=== PATIENT | female | born 1945 | race Caucasian/White ===

== ENCOUNTER 2020-02-07 20:43 | Emergency (ER) | payer MEDICARE, OTHER ==
[2020-02-07] MEDS ORDERED: TETANUS/DIPHTHERIA TOXOID [ADULT] 0.5 ML VIAL IM ONE (20:59)
[2020-02-07 21:00] LABS: EOSINOPHILS % (AUTO) 2.2 % (0.0-8.0); HEMATOCRIT 30.8 % (36-48); LYMPHOCYTES % (AUTO) 23.5 % (21.0-51.0); MEAN CORPUSCULAR HEMOGLOBIN 26.9 pg (27.0-33.0); MEAN CORPUSCULAR HGB CONC 32.5 g/dL (32.0-36.0); MEAN CORPUSCULAR VOLUME 82.8 fL (79-99); PLATELET COUNT (AUTO) 162 K/uL (130-400); RED BLOOD CELL COUNT(AUTO) 3.72 MIL/uL (4.00-5.50)
[2020-02-07 21:10] LABS: CREATININE 1.1 mg/dL (0.5-1.5); POTASSIUM 4.6 mmol/L (3.5-5.1)
[2020-02-07 21:15] LABS: ALBUMIN 3.9 g/dL (3.5-5.0); BILIRUBIN,TOTAL 0.3 mg/dL (0.2-1.0); TOTAL PROTEIN, SERUM 7.3 g/dL (6.0-8.3)
== END 2020-02-07 22:44 | disposition home or self-care (01) ==
LOC: EDH 20:43
DX: S00.03XA Contusion of scalp, initial encounter (principal); S50.311A Abrasion of right elbow, initial encounter; E11.9 Type 2 diabetes mellitus without complications; I10 Essential (primary) hypertension; W18.39XA Other fall on same level, initial encounter; Y93.89 Activity, other specified; Y92.512 Supermarket, store or market as the place of occurrence of the external cause; Y99.8 Other external cause status
CPT/HCPCS: 36415; 70450; 71045; 72125; 80053; 84484; 85025; 90471; 90714; 93005

== ENCOUNTER 2021-01-24 04:19 | Inpatient (IN) | payer BC, MEDICARE ==
[~2021-01-24] VITALS: Ht 152.4 cm; Wt 73.0 kg
[2021-01-24 05:52] LABS: BASOPHILS % (AUTO) 0.6 % (0.0-5.0); EOSINOPHILS % (AUTO) 1.1 % (0.0-8.0); HEMATOCRIT 28.7 % (36-48); LYMPHOCYTES % (AUTO) 12.8 % (21.0-51.0); MEAN CORPUSCULAR HEMOGLOBIN 27.3 pg (27.0-33.0); MEAN CORPUSCULAR HGB CONC 33.1 g/dL (32.0-36.0); MEAN CORPUSCULAR VOLUME 82.5 fL (79-99); MONOCYTES % (AUTO) 7.4 % (3.0-13.0); NEUTROPHILS % (AUTO) 77.9 % (40.0-77.0); PLATELET COUNT (AUTO) 160 K/uL (130-400); RED BLOOD CELL COUNT(AUTO) 3.48 MIL/uL (4.00-5.50); RED CELL DISTRIBUTION WIDTH 14.7 % (11.0-15.5); WHITE BLOOD COUNT (AUTO) 8.9 K/uL (4.8-10.8)
[2021-01-24 06:01] LABS: CREATININE 1.7 mg/dL (0.5-1.5); POTASSIUM 3.5 mmol/L (3.5-5.1)
[2021-01-24 06:12] LABS: B-TYPE NATRIURETIC PEPTIDE 46 pg/mL (0-100)
[2021-01-24 06:14] LABS: ALBUMIN 3.7 g/dL (3.5-5.0); BILIRUBIN,TOTAL 0.4 mg/dL (0.2-1.0); MAGNESIUM 1.3 mg/dL (1.80-2.40); THYROID STIMULATING HORMONE 1.83 uIU/mL (0.36-3.74); TOTAL PROTEIN, SERUM 7.2 g/dL (6.0-8.3)
[2021-01-24 06:20] LABS: APPEARANCE,URINE CLEAR (CLEAR); BILIRUBIN,URINE NEGATIVE (NEGATIVE); COLOR,URINE YELLOW (YELLOW); GLUCOSE, URINE (UA) NEGATIVE (NEGATIVE); KETONES,URINE NEGATIVE (NEGATIVE); LEUKOCYTE ESTERASE ,URINE NEGATIVE (NEGATIVE); NITRATE,URINE NEGATIVE (NEGATIVE); OCCULT BLOOD,URINE NEGATIVE (NEGATIVE); PH,URINE 5.5 (5.0-8.0); PROTEIN,URINE NEGATIVE (NEGATIVE); UROBILINOGEN,URINE 0.2 mg/dL (0.2-1.0)
[2021-01-24] MEDS ORDERED: FUROSEMIDE 40MG VIAL IVP ONE (06:30)
[2021-01-24] MEDS ORDERED: METO-391 PO (06:33)
[2021-01-24] MEDS ORDERED: LAMO150T6 PO (06:33)
[2021-01-24] MEDS ORDERED: FURO20TA4 PO (06:33)
[2021-01-24] MEDS ORDERED: OMEP40CA21 PO (06:33)
[2021-01-24] MEDS ORDERED: METF-444 PO (06:33)
[2021-01-24] MEDS ORDERED: LEVO75CA5 PO (06:33)
[2021-01-24] MEDS ORDERED: QUET100T34 PO (06:33)
[2021-01-24] MEDS ORDERED: ROSU40TA21 PO (06:33)
[2021-01-24] MEDS ORDERED: HYDR-4154 PO (06:33)
[2021-01-24] MEDS ORDERED: AMLO-258 PO (06:33)
[2021-01-24] MEDS ORDERED: AEC81 PO (06:33)
[2021-01-24] MEDS ORDERED: LORA10TA7 PO (06:33)
[2021-01-24] MEDS ORDERED: CLINDAMYCIN IVPB 600MG/50ML 50 ML IV ONE (07:00)
[2021-01-24] MEDS ORDERED: MORPHINE 2 MG SYG IVP ONE (07:00)
[2021-01-24] MEDS ORDERED: HYDRALAZINE 20MG/ML VIAL IV PRN (07:30)
[2021-01-24] MEDS ORDERED: ONDANSETRON 4MG INJ IV PRN (07:30)
[2021-01-24 09:02] LABS: ABG BASE EXCESS 0.4 mmol/L (-2.0-3.0); ABG HCO3 23.4 mmol/L (21.0-28.0); ABG OXYGEN SATURATION 96.9 % (95.0-99.0); ABG PCO2 33 mmHg (32-45)
[2021-01-24] MEDS: FAMOTIDINE 20MG VIAL IV SCH ×2 (09:21→20:52)
[2021-01-24] MEDS: ENOXAPARIN SODIUM 40 MG/0.4 ML SYRINGE SQ SCH (09:22)
[2021-01-24] MEDS ORDERED: POTASSIUM CHLORIDE 10% ELIXIR 20 MEQ/15 ML UDCUP PO PRN ×2 (10:30)
[2021-01-24] MEDS ORDERED: KCL 20 MEQ ERTAB PO PRN (10:30)
[2021-01-24] MEDS ORDERED: MAGNESIUM 2GM PREMIX 50ML 50 ML IV PRN (10:30)
[2021-01-24] MEDS ORDERED: POTASSIUM CHLORIDE 20MEQ/100ML 100 ML IV PRN ×2 (10:30)
[2021-01-24] MEDS ORDERED: LIDOCAINE HCL-MPF 1% 2ML VIAL IV PRN ×2 (10:30)
[2021-01-24] MEDS: KCL 20 MEQ ERTAB PO PRN ×2 (10:46→13:44)
[2021-01-24] MEDS ORDERED: LEVOFLOXACIN 500 MG/D5W 100 ML 100 ML IV SCH (11:00)
[2021-01-24] MEDS ORDERED: FUROSEMIDE 20MG VIAL IV SCH (11:30)
[2021-01-24] MEDS: INSULIN HUMULIN R 100 UNIT/ML 3ML SQ SCH ×3 (11:30→20:54)
[2021-01-24 12:00] VITALS: BP 134/71
[2021-01-24] MEDS: ACETAMINOPHEN 325 MG TAB PO PRN (13:45)
[2021-01-24 16:00] VITALS: BP 112/73
[2021-01-24] MEDS: CEFAZOLIN SODIUM 1 GM VIAL IVP SCH ×2 (16:18→23:15)
[2021-01-24] MEDS: LINEZOLID 600 MG/ISO-OSM 300 ML IV SCH (16:18)
[2021-01-24 19:39] LABS: CREATININE 1.9 mg/dL (0.5-1.5); MAGNESIUM 1.7 mg/dL (1.80-2.40); POTASSIUM 3.8 mmol/L (3.5-5.1)
[2021-01-24 19:50] VITALS: BP 139/58
[2021-01-24] MEDS ORDERED: QUETIAPINE FUMARATE 100 MG TAB ONE (23:22)
[2021-01-25] VITALS (7 sets, daily range): BP systolic 119–151; BP diastolic 52–73
[2021-01-25] MEDS: LINEZOLID 600 MG/ISO-OSM 300 ML IV SCH ×2 (03:18→15:13)
[2021-01-25 04:12] LABS: HEMATOCRIT 27.3 % (36-48); MEAN CORPUSCULAR HEMOGLOBIN 26.8 pg (27.0-33.0); MEAN CORPUSCULAR HGB CONC 31.5 g/dL (32.0-36.0); RED BLOOD CELL COUNT(AUTO) 3.21 MIL/uL (4.00-5.50); RED CELL DISTRIBUTION WIDTH 14.5 % (11.0-15.5); WHITE BLOOD COUNT (AUTO) 6.5 K/uL (4.8-10.8)
[2021-01-25 04:28] LABS: CREATININE 1.5 mg/dL (0.5-1.5); POTASSIUM 3.6 mmol/L (3.5-5.1)
[2021-01-25] MEDS: INSULIN HUMULIN R 100 UNIT/ML 3ML SQ SCH ×4 (06:29→20:29)
[2021-01-25] MEDS: CEFAZOLIN SODIUM 1 GM VIAL IVP SCH ×3 (06:30→23:01)
[2021-01-25] MEDS: LEVOTHYROXINE 75 MCG TABLET PO SCH (06:36)
[2021-01-25] MEDS ORDERED: QUETIAPINE FUMARATE 100 MG TAB PO SCH (09:00)
[2021-01-25] MEDS: LAMOTRIGINE 100 MG TABLET PO SCH (09:42)
[2021-01-25] MEDS: MAGNESIUM 2GM PREMIX 50ML 50 ML IV PRN (09:42)
[2021-01-25] MEDS: KCL 20 MEQ ERTAB PO PRN ×2 (09:43→15:17)
[2021-01-25] MEDS: LORATADINE 10 MG TABLET PO SCH (09:43)
[2021-01-25] MEDS: ENOXAPARIN SODIUM 40 MG/0.4 ML SYRINGE SQ SCH (09:44)
[2021-01-25] MEDS: METOPROLOL SUCCINATE 50 MG TAB.SR.24H PO SCH (09:45)
[2021-01-25] MEDS: ATORVASTATIN 40 MG TABLET PO SCH (09:45)
[2021-01-25] MEDS: ASPIRIN 81 MG EC TAB PO SCH (09:46)
[2021-01-25] MEDS: PANTOPRAZOLE 40 MG TAB DR PO SCH (09:46)
[2021-01-25] MEDS: ACETAMINOPHEN 325 MG TAB PO PRN ×2 (14:07→23:22)
[2021-01-26] MEDS ORDERED: HYDROCODONE/ACETAMINOPHEN 5/325 MG TAB PO ONE (02:30)
[2021-01-26] MEDS: LINEZOLID 600 MG/ISO-OSM 300 ML IV SCH ×2 (03:08→13:57)
[2021-01-26 03:35] VITALS: BP 128/60
[2021-01-26 04:01] LABS: HEMATOCRIT 27.3 % (36-48); MEAN CORPUSCULAR HEMOGLOBIN 26.5 pg (27.0-33.0); MEAN CORPUSCULAR HGB CONC 30.4 g/dL (32.0-36.0); MEAN CORPUSCULAR VOLUME 87.2 fL (79-99); PLATELET COUNT (AUTO) 147 K/uL (130-400); RED BLOOD CELL COUNT(AUTO) 3.13 MIL/uL (4.00-5.50); RED CELL DISTRIBUTION WIDTH 14.5 % (11.0-15.5); WHITE BLOOD COUNT (AUTO) 5.9 K/uL (4.8-10.8)
[2021-01-26 04:32] LABS: CREATININE 1.3 mg/dL (0.5-1.5); POTASSIUM 3.8 mmol/L (3.5-5.1)
[2021-01-26] MEDS: INSULIN HUMULIN R 100 UNIT/ML 3ML SQ SCH ×4 (05:57→21:00)
[2021-01-26] MEDS: CEFAZOLIN SODIUM 1 GM VIAL IVP SCH ×3 (06:22→22:19)
[2021-01-26] MEDS: LEVOTHYROXINE 75 MCG TABLET PO SCH (06:22)
[2021-01-26 07:38] VITALS: BP 135/62
[2021-01-26] MEDS: ASPIRIN 81 MG EC TAB PO SCH (08:33)
[2021-01-26] MEDS: PANTOPRAZOLE 40 MG TAB DR PO SCH (08:33)
[2021-01-26] MEDS: ACETAMINOPHEN 325 MG TAB PO PRN (08:34)
[2021-01-26] MEDS: ATORVASTATIN 40 MG TABLET PO SCH (08:34)
[2021-01-26] MEDS: METOPROLOL SUCCINATE 50 MG TAB.SR.24H PO SCH (08:34)
[2021-01-26] MEDS: LORATADINE 10 MG TABLET PO SCH (08:34)
[2021-01-26] MEDS: ENOXAPARIN SODIUM 40 MG/0.4 ML SYRINGE SQ SCH (08:35)
[2021-01-26] MEDS: LAMOTRIGINE 100 MG TABLET PO SCH (08:39)
[2021-01-26 11:22] VITALS: BP 140/57
[2021-01-26] MEDS ORDERED: ACETAMINOPHEN WITH CODEINE 1 TAB TAB PO PRN (13:30)
[2021-01-26 16:00] VITALS: BP 128/54
[2021-01-26] MEDS ORDERED: QUETIAPINE FUMARATE 100 MG TAB ONE (19:21)
[2021-01-26 19:25] VITALS: BP 140/70
[2021-01-26] MEDS ORDERED: QUETIAPINE FUMARATE 100 MG TAB PO SCH (21:00)
[2021-01-26 23:11] VITALS: BP 113/53
[2021-01-27] MEDS: LINEZOLID 600 MG/ISO-OSM 300 ML IV SCH (02:07)
[2021-01-27 04:00] VITALS: BP 118/68
[2021-01-27 04:20] LABS: MEAN CORPUSCULAR HEMOGLOBIN 26.6 pg (27.0-33.0); MEAN CORPUSCULAR HGB CONC 30.4 g/dL (32.0-36.0); MEAN CORPUSCULAR VOLUME 87.7 fL (79-99); RED BLOOD CELL COUNT(AUTO) 3.08 MIL/uL (4.00-5.50); RED CELL DISTRIBUTION WIDTH 14.2 % (11.0-15.5); WHITE BLOOD COUNT (AUTO) 5.2 K/uL (4.8-10.8)
[2021-01-27 04:24] LABS: CREATININE 1.1 mg/dL (0.5-1.5); POTASSIUM 4.3 mmol/L (3.5-5.1)
[2021-01-27] MEDS: INSULIN HUMULIN R 100 UNIT/ML 3ML SQ SCH ×3 (05:42→16:30)
[2021-01-27] MEDS: LEVOTHYROXINE 75 MCG TABLET PO SCH (06:02)
[2021-01-27] MEDS: CEFAZOLIN SODIUM 1 GM VIAL IVP SCH (06:02)
[2021-01-27] MEDS: MAGNESIUM 2GM PREMIX 50ML 50 ML IV PRN (06:31)
[2021-01-27 07:30] LABS: % IRON SATURATION 18.3 % (22-44)
[2021-01-27 08:00] VITALS: BP 130/73
[2021-01-27] MEDS: LORATADINE 10 MG TABLET PO SCH (09:17)
[2021-01-27] MEDS: ASPIRIN 81 MG EC TAB PO SCH (09:17)
[2021-01-27] MEDS: ENOXAPARIN SODIUM 40 MG/0.4 ML SYRINGE SQ SCH (09:17)
[2021-01-27] MEDS: METOPROLOL SUCCINATE 50 MG TAB.SR.24H PO SCH (09:17)
[2021-01-27] MEDS: ATORVASTATIN 40 MG TABLET PO SCH (09:17)
[2021-01-27] MEDS: PANTOPRAZOLE 40 MG TAB DR PO SCH (09:18)
[2021-01-27] MEDS: LAMOTRIGINE 100 MG TABLET PO SCH (09:18)
[2021-01-27 12:06] VITALS: BP 143/54
[2021-01-27] MEDS ORDERED: FURO20TA4 PO (15:30)
[2021-01-27 16:00] VITALS: BP 148/86
[2021-01-28] MEDS ORDERED: TRAM50TA4 PO (04:16)
== END 2021-01-27 19:30 | disposition home or self-care (01) | DRG 602 ==
LOC: EDH 04:19 → EDHIP 07:13 → 4DH 10:17
PROVIDERS: ADMIT Internal Medicine; ATTEND Internal Medicine
DX: L03.116 Cellulitis of left lower limb (principal); I50.31 Acute diastolic (congestive) heart failure; I11.0 Hypertensive heart disease with heart failure; L03.115 Cellulitis of right lower limb; M75.101 Unspecified rotator cuff tear or rupture of right shoulder, not specified as traumatic; N19 Unspecified kidney failure; E66.9 Obesity, unspecified; E03.9 Hypothyroidism, unspecified; E83.42 Hypomagnesemia; Z20.822 Contact with and (suspected) exposure to COVID-19; M19.90 Unspecified osteoarthritis, unspecified site; K21.9 Gastro-esophageal reflux disease without esophagitis; E78.00 Pure hypercholesterolemia, unspecified; E11.40 Type 2 diabetes mellitus with diabetic neuropathy, unspecified; E78.5 Hyperlipidemia, unspecified; Z68.31 Body mass index [BMI] 31.0-31.9, adult; Z90.49 Acquired absence of other specified parts of digestive tract; Z88.8 Allergy status to other drugs, medicaments and biological substances; Z83.3 Family history of diabetes mellitus; Z82.49 Family history of ischemic heart disease and other diseases of the circulatory system; T50.905A Adverse effect of unspecified drugs, medicaments and biological substances, initial encounter; Y92.89 Other specified places as the place of occurrence of the external cause
CPT/HCPCS: 36415; 36600; 71045; 73221; 80048; 80053; 80061; 81003; 82728; 82803; 82948; 83036; 83540; 83550; 83735; 83880; 84145; 84443; 84484; 85025; 85027; 86140; 87635; 93005; 93306; 93356; 93970; 97039; G0378; J0690; J1650; J1815; J1940; J1956; J2020; J3475; J3490

== ENCOUNTER 2021-01-28 02:56 | Emergency (ER) | payer MEDICARE ==
[~2021-01-28 02:56] MED LIST: AEC81 PO; FURO20TA4 PO; HYDR-4154 PO; LAMO150T6 PO; LEVO75CA5 PO; LORA10TA7 PO; METF-444 PO; METO-391 PO; OMEP40CA21 PO; QUET100T34 PO; ROSU40TA21 PO
[2021-01-28 03:11] VITALS: BP 124/49
[2021-01-28] MEDS ORDERED: ACETAMINOPHEN 500 MG TABLET PO ONE (03:30)
[2021-01-28] MEDS ORDERED: TRAMADOL HCL 50 MG TABLET PO ONE (04:00)
[2021-01-28] MEDS ORDERED: TRAM50TA4 PO (04:16)
== END 2021-01-28 04:49 | disposition home or self-care (01) ==
LOC: EDH 02:56
DX: S20.212A Contusion of left front wall of thorax, initial encounter (principal); L03.116 Cellulitis of left lower limb; E78.00 Pure hypercholesterolemia, unspecified; I11.0 Hypertensive heart disease with heart failure; I50.9 Heart failure, unspecified; E11.40 Type 2 diabetes mellitus with diabetic neuropathy, unspecified; M19.90 Unspecified osteoarthritis, unspecified site; E05.90 Thyrotoxicosis, unspecified without thyrotoxic crisis or storm; Z79.82 Long term (current) use of aspirin; Z79.84 Long term (current) use of oral hypoglycemic drugs; Z79.899 Other long term (current) drug therapy; W18.39XA Other fall on same level, initial encounter; Y93.89 Activity, other specified; Y92.89 Other specified places as the place of occurrence of the external cause; Y99.8 Other external cause status
CPT/HCPCS: 71045

== ENCOUNTER → 2021-12-02 | Outpatient (CLI) | payer OTHER ==
[~2021-12-02] MED LIST changes: +TRAM50TA4 PO
== END | disposition home or self-care (01) ==
LOC: RAH 09:56
PROVIDERS: ATTEND Family Medicine
DX: M25.561 Pain in right knee (principal)
CPT/HCPCS: 73562

== ENCOUNTER → 2022-06-22 | Outpatient (CLI) | payer OTHER | END | disposition home or self-care (01) | LOC: RAH 12:34 | PROVIDERS: ATTEND Family Medicine | DX: R91.8 Other nonspecific abnormal finding of lung field (principal); M47.815 Spondylosis without myelopathy or radiculopathy, thoracolumbar region | CPT/HCPCS: 71046 ==

== ENCOUNTER 2022-06-29 13:17 | Emergency (ER) | payer OTHER ==
[~2022-06-29] VITALS: Ht 533.4 cm; Wt 68.0 kg
[2022-06-29 14:42] LABS: BASOPHILS % (AUTO) 0.5 % (0.0-5.0); EOSINOPHILS % (AUTO) 1.8 % (0.0-8.0); HEMATOCRIT 31.6 % (36-48); LYMPHOCYTES % (AUTO) 10.3 % (21.0-51.0); MEAN CORPUSCULAR HEMOGLOBIN 27.2 pg (27.0-33.0); MEAN CORPUSCULAR HGB CONC 30.7 g/dL (32.0-36.0); MEAN CORPUSCULAR VOLUME 88.5 fL (79-99); MONOCYTES % (AUTO) 7.7 % (3.0-13.0); NEUTROPHILS % (AUTO) 76.8 % (40.0-77.0); NUCLEATED RED BLOOD CELLS 0.3 % (0.0-0.19); PLATELET COUNT (AUTO) 160 K/uL (130-400); RED BLOOD CELL COUNT(AUTO) 3.57 MIL/uL (4.00-5.50); RED CELL DISTRIBUTION WIDTH 14.3 % (11.0-15.5); WHITE BLOOD COUNT (AUTO) 7.9 K/uL (4.8-10.8)
[2022-06-29 14:53] LABS: CREATININE 1.6 mg/dL (0.5-1.5)
[2022-06-29 15:01] LABS: ALBUMIN 3.3 g/dL (3.5-5.0); TOTAL PROTEIN, SERUM 6.7 g/dL (6.0-8.3)
[2022-06-29 15:58] LABS: APPEARANCE,URINE CLEAR (CLEAR); BILIRUBIN,URINE NEGATIVE (NEGATIVE); COLOR,URINE COLORLESS (YELLOW); GLUCOSE, URINE (UA) NEGATIVE (NEGATIVE); KETONES,URINE NEGATIVE (NEGATIVE); LEUKOCYTE ESTERASE ,URINE 25 Leu/uL (NEGATIVE); NITRATE,URINE NEGATIVE (NEGATIVE); OCCULT BLOOD,URINE NEGATIVE (NEGATIVE); PH,URINE 6.5 (5.0-8.0); PROTEIN,URINE NEGATIVE (NEGATIVE); UROBILINOGEN,URINE 0.2 mg/dL (0.2-1.0)
[2022-06-29] MEDS ORDERED: KETOROLAC 15MG/ML VIAL (15MG/ML) IV ONE (16:00)
[2022-06-29 16:03] LABS: BACTERIA,URINE RARE /HPF (None Seen); RBC,URINE 0-1 /HPF (0-1); SQUAMOUS EPITHELIAL CELL,UR RARE /HPF (0-2)
[2022-06-29] MEDS ORDERED: SULF1TAB42 PO (17:57)
[2022-06-29] MEDS ORDERED: CEPH500T PO (18:00)
[2022-06-29] MEDS ORDERED: CEFTRIAXONE 1G VIAL ONE (18:15)
[2022-06-29] MEDS ORDERED: CEFTRIAXONE 1G VIAL IVPB ONE (18:30)
[2022-06-29 20:19] VITALS: BP 150/78
== END 2022-06-29 20:29 | disposition home or self-care (01) ==
LOC: EDH 13:17
DX: N39.0 Urinary tract infection, site not specified (principal); M54.50 Low back pain, unspecified; M54.2 Cervicalgia; M25.561 Pain in right knee; E11.9 Type 2 diabetes mellitus without complications; E78.00 Pure hypercholesterolemia, unspecified; M19.90 Unspecified osteoarthritis, unspecified site; I11.0 Hypertensive heart disease with heart failure; Z79.82 Long term (current) use of aspirin; Z79.899 Other long term (current) drug therapy
CPT/HCPCS: 99285; 72125; 96374; 71045; 96375; 84484; 80053; 83880; 85025; 81001; 36415; 73562; 72131; 72128; 93005; J0696; J1885

== ENCOUNTER → 2022-08-26 | Outpatient (CLI) | payer OTHER ==
[~2022-08-26] MED LIST changes: -AEC81 PO; +AMLO-258 PO; +ATOR20TA65 PO; +FENO160T16 PO; -FURO20TA4 PO; +GABA600T10 PO; +HYDR25 PO; +LOSA100T59 PO; -METF-444 PO; +METF-446 PO; +MONT-39 PO; -ROSU40TA21 PO; -TRAM50TA4 PO
== END | disposition home or self-care (01) ==
LOC: RAH 13:37
PROVIDERS: ATTEND Family Medicine
DX: K57.30 Diverticulosis of large intestine without perforation or abscess without bleeding (principal); N13.30 Unspecified hydronephrosis; Z90.49 Acquired absence of other specified parts of digestive tract
CPT/HCPCS: 74176

== ENCOUNTER → 2022-09-25 | Outpatient (CLI) | payer OTHER | END | disposition home or self-care (01) | LOC: RAH 13:08 | PROVIDERS: ATTEND Family Medicine | DX: I70.203 Unspecified atherosclerosis of native arteries of extremities, bilateral legs (principal); E11.40 Type 2 diabetes mellitus with diabetic neuropathy, unspecified; E11.51 Type 2 diabetes mellitus with diabetic peripheral angiopathy without gangrene | CPT/HCPCS: 93925 ==

== ENCOUNTER 2022-10-13 00:41 | Emergency (ER) | payer OTHER ==
[~2022-10-13] VITALS: Ht 152.4 cm; Wt 69.4 kg
[2022-10-13 02:53] LABS: BASOPHILS # (AUTO) 0.06 K/uL (0.00-0.20); BASOPHILS % (AUTO) 0.6 % (0.0-5.0); EOSINOPHILS # (AUTO) 0.25 K/uL (0.00-0.70); EOSINOPHILS % (AUTO) 2.7 % (0.0-8.0); HEMATOCRIT 31.8 % (36-48); IMMATURE GRANULOCYTE ABSOLUTE 0.03 K/uL (0-1); LYMPHOCYTES # (AUTO) 1.3 K/uL (1.0-4.8); LYMPHOCYTES % (AUTO) 14.3 % (21.0-51.0); MEAN CORPUSCULAR HEMOGLOBIN 27.3 pg (27.0-33.0); MEAN CORPUSCULAR HGB CONC 32.1 g/dL (32.0-36.0); MEAN CORPUSCULAR VOLUME 85.3 fL (79-99); MONOCYTES # (AUTO) 0.6 K/uL (0.1-1.0); MONOCYTES % (AUTO) 6.3 % (3.0-13.0); NEUTROPHILS # (AUTO) 7.1 K/uL (1.8-7.7); NEUTROPHILS % (AUTO) 75.8 % (40.0-77.0); PLATELET COUNT (AUTO) 140 K/uL (130-400); RED BLOOD CELL COUNT(AUTO) 3.73 MIL/uL (4.00-5.50); RED CELL DISTRIBUTION WIDTH 14.2 % (11.0-15.5); WHITE BLOOD COUNT (AUTO) 9.4 K/uL (4.8-10.8)
[2022-10-13 02:56] LABS: APPEARANCE,URINE CLEAR (CLEAR); BILIRUBIN,URINE NEGATIVE (NEGATIVE); COLOR,URINE LIGHT-YELLOW (YELLOW); GLUCOSE, URINE (UA) NEGATIVE (NEGATIVE); KETONES,URINE NEGATIVE (NEGATIVE); LEUKOCYTE ESTERASE ,URINE NEGATIVE Leu/uL (NEGATIVE); NITRATE,URINE NEGATIVE (NEGATIVE); OCCULT BLOOD,URINE NEGATIVE (NEGATIVE); PROTEIN,URINE NEGATIVE (NEGATIVE); UROBILINOGEN,URINE 0.2 mg/dL (0.2-1.0)
[2022-10-13 03:01] LABS: ADD UA MICROSCOPIC NO
[2022-10-13 03:09] LABS: CREATININE 1.1 mg/dL (0.5-1.5)
[2022-10-13 03:15] LABS: BILIRUBIN,TOTAL 0.4 mg/dL (0.2-1.0); TOTAL PROTEIN, SERUM 7.4 g/dL (6.0-8.3)
[2022-10-13 04:19] VITALS: BP 135/74; PULSE 86; RESP 18; O2SAT 99
[2022-10-13] MEDS ORDERED: FUROSEMIDE 40MG VIAL IV ONE (04:30)
[2022-10-13] MEDS ORDERED: POTA-215 PO (04:36)
[2022-10-13] MEDS ORDERED: FURO-152 PO (04:36)
[2022-10-13] MEDS ORDERED: IOHEXOL-350 75 ML VIAL IV ONE (05:56)
== END 2022-10-13 08:16 | disposition home or self-care (01) ==
LOC: EDH 00:41
DX: I12.9 Hypertensive chronic kidney disease with stage 1 through stage 4 chronic kidney disease, or unspecified chronic kidney disease (principal); E11.22 Type 2 diabetes mellitus with diabetic chronic kidney disease; N18.30 Chronic kidney disease, stage 3 unspecified; E03.9 Hypothyroidism, unspecified; R60.0 Localized edema; E78.00 Pure hypercholesterolemia, unspecified; M19.90 Unspecified osteoarthritis, unspecified site; Z79.84 Long term (current) use of oral hypoglycemic drugs; Z79.899 Other long term (current) drug therapy; Z90.49 Acquired absence of other specified parts of digestive tract
CPT/HCPCS: 99285; 93970; 96374; 71270; 71045; 82550; 84484 ×2; 80053; 83880; 85025; 85378; 81003; 36415; 93005; J1940; Q9967

== ENCOUNTER 2023-06-09 19:37 | Inpatient (IN) | payer OTHER ==
[~2023-06-09] VITALS: Ht 152.4 cm; Wt 66.7 kg
[~2023-06-09 19:37] MED LIST changes: +FURO-152 PO; -HYDR-4154 PO; +HYDR50TA37 PO; +POTA-215 PO
[2023-06-09 20:36] LABS: APPEARANCE,URINE CLEAR (CLEAR); BILIRUBIN,URINE NEGATIVE (NEGATIVE); COLOR,URINE COLORLESS (YELLOW); GLUCOSE, URINE (UA) NEGATIVE (NEGATIVE); KETONES,URINE NEGATIVE (NEGATIVE); LEUKOCYTE ESTERASE ,URINE NEGATIVE Leu/uL (NEGATIVE); NITRATE,URINE NEGATIVE (NEGATIVE); OCCULT BLOOD,URINE NEGATIVE (NEGATIVE); PH,URINE 5.5 (5.0-8.0); PROTEIN,URINE 30 mg/dL (NEGATIVE); UROBILINOGEN,URINE 0.2 mg/dL (0.2-1.0)
[2023-06-09 20:37] LABS: ADD UA MICROSCOPIC YES
[2023-06-09 20:38] LABS: MUCUS,URINE RARE LPF (None Seen); SQUAMOUS EPITHELIAL CELL,UR RARE /HPF (0-2)
[2023-06-09 21:24] LABS: BASOPHILS # (AUTO) 0.03 K/uL (0.00-0.20); BASOPHILS % (AUTO) 0.3 % (0.0-5.0); EOSINOPHILS # (AUTO) 0.04 K/uL (0.00-0.70); EOSINOPHILS % (AUTO) 0.5 % (0.0-8.0); HEMATOCRIT 34.3 % (36-48); IMMATURE GRANULOCYTE ABSOLUTE 0.03 K/uL (0-1); LYMPHOCYTES # (AUTO) 1.2 K/uL (1.0-4.8); LYMPHOCYTES % (AUTO) 13.9 % (21.0-51.0); MEAN CORPUSCULAR HEMOGLOBIN 27.2 pg (27.0-33.0); MEAN CORPUSCULAR HGB CONC 32.1 g/dL (32.0-36.0); MEAN CORPUSCULAR VOLUME 84.7 fL (79-99); MONOCYTES # (AUTO) 0.6 K/uL (0.1-1.0); MONOCYTES % (AUTO) 6.8 % (3.0-13.0); NEUTROPHILS # (AUTO) 6.9 K/uL (1.8-7.7); NEUTROPHILS % (AUTO) 78.2 % (40.0-77.0); PLATELET COUNT (AUTO) 173 K/uL (130-400); RED BLOOD CELL COUNT(AUTO) 4.05 MIL/uL (4.00-5.50); RED CELL DISTRIBUTION WIDTH 13.6 % (11.0-15.5); WHITE BLOOD COUNT (AUTO) 8.9 K/uL (4.8-10.8)
[2023-06-09 21:29] LABS: CARBON DIOXIDE 28 mmol/L (21-32); CHLORIDE 107 mmol/L (101-111); GLOMERULAR FILTR. RATE CALC 58 mL/min (>90); GLUCOSE,RANDOM 91 mg/dL (70-105); POTASSIUM 3.5 mmol/L (3.5-5.1); SODIUM SERUM 144 mmol/L (136-145); UREA NITROGEN, BLOOD 14 mg/dL (7-18)
[2023-06-09 21:33] LABS: ALANINE AMINOTRANSFERASE 31 U/L (12-78); ALBUMIN 3.1 g/dL (3.5-5.0); ALCOHOL, BLOOD < 3 mg/dL (0-10); ASPARTATE AMINOTRANSFERASE 32 U/L (10-37); BILIRUBIN,TOTAL 0.4 mg/dL (0.2-1.0); CREATINE KINASE, TOTAL 297 U/L (21-232); SALICYLATE 4.9 mg/dL (2.8-20.0); TOTAL PROTEIN, SERUM 6.8 g/dL (6.0-8.3)
[2023-06-09 21:36] LABS: ACETAMINOPHEN < 1 mcg/mL (10-30)
[2023-06-09 22:42] LABS: AMPHET/METH SCREEN,URINE NEGATIVE (NEGATIVE); BARBITURATE SCREEN, URINE NEGATIVE (NEGATIVE); BENZODIAZEPINES SCREEN,URINE NEGATIVE (NEGATIVE); CANNABINOID SCREEN,URINE NEGATIVE (NEGATIVE); COCAINE SCREEN,URINE NEGATIVE (NEGATIVE); OPIATE SCREEN,URINE NEGATIVE (NEGATIVE); PHENCYCLIDINE SCREEN,URINE NEGATIVE (NEGATIVE)
[2023-06-10] MEDS ORDERED: POTASSIUM CHLORIDE 20MEQ/100ML 100 ML IV PRN (17:30)
[2023-06-10] MEDS ORDERED: ONDANSETRON 4MG INJ IVP PRN (17:30)
[2023-06-10] MEDS ORDERED: COMPOUND IV MISC 1 EACH IVSOLN MISC PRN (17:30)
[2023-06-10] MEDS ORDERED: POTASSIUM CHLORIDE 10% ELIXIR 20 MEQ/15 ML UDCUP PO PRN (17:30)
[2023-06-10 17:40] LABS: CREATININE 0.7 mg/dL (0.5-1.0); HEMOGLOBIN A1C 7.5 % (4.0-6.0); POTASSIUM 3.3 mmol/L (3.5-5.1)
[2023-06-10] MEDS: HYDRALAZINE 25MG TABLET PO SCH (17:51)
[2023-06-10] MEDS: LOSARTAN 100 MG TABLET PO SCH (17:51)
[2023-06-10] MEDS: ACETAMINOPHEN 325 MG TAB PO PRN (17:51)
[2023-06-10 17:53] LABS: THYROID STIMULATING HORMONE 3.97 uIU/mL (0.36-3.74)
[2023-06-10] MEDS: M.V.I. IV [ADULT] 10 ML, FOLIC ACID 1 MG, THIAMINE HCL 100 MG in 0.9%NACL 1000ML 1,000 ML IV SCH (18:18)
[2023-06-10 18:58] LABS: INR 0.95 (0.85-1.15); PROTHROMBIN TIME 11.2 SEC (9.6-11.6)
[2023-06-10 19:00] LABS: PARTIAL THROMBOPLASTIN TIME 28.2 SEC (26.3-35.5)
[2023-06-10] MEDS: FAMOTIDINE 20MG VIAL IV SCH (20:27)
[2023-06-10] MEDS: DOCUSATE SODIUM 100 MG CAP PO SCH (20:27)
[2023-06-10] MEDS: QUETIAPINE FUMARATE 100 MG TAB PO SCH (20:28)
[2023-06-10] MEDS: KCL 20 MEQ ERTAB PO PRN (20:28)
[2023-06-10] MEDS: MAGNESIUM 2GM PREMIX 50ML 50 ML IV SCH (20:28)
[2023-06-10] MEDS: GABAPENTIN 300 MG CAPSULE PO SCH (20:28)
[2023-06-10] MEDS: INSULIN HUMULIN R 100 UNIT/ML 3ML SQ SCH (20:43)
[2023-06-10 20:50] VITALS: BP 130/56; PULSE 73; RESP 20
[2023-06-11] VITALS (7 sets, daily range): BP systolic 93–156; BP diastolic 51–71; PULSE 55–71; RESP 16–21; O2SAT 95
[2023-06-11] MEDS: LEVOTHYROXINE 75 MCG TABLET PO SCH (06:22)
[2023-06-11 06:27] LABS: BASOPHILS # (AUTO) 0.04 K/uL (0.00-0.20); BASOPHILS % (AUTO) 0.7 % (0.0-5.0); EOSINOPHILS # (AUTO) 0.06 K/uL (0.00-0.70); HEMATOCRIT 32.8 % (36-48); IMMATURE GRANULOCYTE ABSOLUTE 0.03 K/uL (0-1); LYMPHOCYTES # (AUTO) 1.1 K/uL (1.0-4.8); LYMPHOCYTES % (AUTO) 17.3 % (21.0-51.0); MEAN CORPUSCULAR HEMOGLOBIN 26.9 pg (27.0-33.0); MEAN CORPUSCULAR HGB CONC 31.4 g/dL (32.0-36.0); MEAN CORPUSCULAR VOLUME 85.6 fL (79-99); MONOCYTES # (AUTO) 0.5 K/uL (0.1-1.0); MONOCYTES % (AUTO) 7.5 % (3.0-13.0); NEUTROPHILS # (AUTO) 4.5 K/uL (1.8-7.7); PLATELET COUNT (AUTO) 170 K/uL (130-400); RED BLOOD CELL COUNT(AUTO) 3.83 MIL/uL (4.00-5.50); RED CELL DISTRIBUTION WIDTH 13.8 % (11.0-15.5); WHITE BLOOD COUNT (AUTO) 6.1 K/uL (4.8-10.8)
[2023-06-11 06:28] LABS: ALBUMIN 2.6 g/dL (3.5-5.0); BILIRUBIN,TOTAL 0.5 mg/dL (0.2-1.0); CREATININE 1.6 mg/dL (0.5-1.0); POTASSIUM 3.7 mmol/L (3.5-5.1); TOTAL PROTEIN, SERUM 5.9 g/dL (6.0-8.3)
[2023-06-11] MEDS: METOPROLOL SUCCINATE 50 MG TAB.SR.24H PO SCH (08:52)
[2023-06-11] MEDS: LAMOTRIGINE 100 MG TABLET PO SCH (08:53)
[2023-06-11] MEDS: MORPHINE 2 MG SYG IVP PRN (13:16)
[2023-06-11] MEDS ORDERED: LATA2.5D15 OU (18:51)
[2023-06-12 00:12] VITALS: BP 130/52; PULSE 68; RESP 20
[2023-06-12 04:25] VITALS: BP 128/67; PULSE 69; RESP 20
[2023-06-12 07:30] VITALS: BP 166/74; PULSE 71; RESP 20
[2023-06-12 08:00] VITALS: O2SAT 96
[2023-06-12 16:00] VITALS: BP 163/70; PULSE 65; RESP 20
[2023-06-12 20:00] VITALS: BP 171/90; PULSE 69; RESP 20; O2SAT 95
[2023-06-13] VITALS (7 sets, daily range): BP systolic 126–172; BP diastolic 53–89; PULSE 51–68; RESP 16–20; O2SAT 95–96
[2023-06-13 06:17] LABS: BASOPHILS # (AUTO) 0.03 K/uL (0.00-0.20); BASOPHILS % (AUTO) 0.5 % (0.0-5.0); EOSINOPHILS # (AUTO) 0.15 K/uL (0.00-0.70); EOSINOPHILS % (AUTO) 2.5 % (0.0-8.0); HEMATOCRIT 31.1 % (36-48); IMMATURE GRANULOCYTE ABSOLUTE 0.03 K/uL (0-1); LYMPHOCYTES # (AUTO) 1.3 K/uL (1.0-4.8); LYMPHOCYTES % (AUTO) 22.4 % (21.0-51.0); MEAN CORPUSCULAR HEMOGLOBIN 27.4 pg (27.0-33.0); MEAN CORPUSCULAR HGB CONC 30.9 g/dL (32.0-36.0); MEAN CORPUSCULAR VOLUME 88.6 fL (79-99); MONOCYTES # (AUTO) 0.5 K/uL (0.1-1.0); MONOCYTES % (AUTO) 8.1 % (3.0-13.0); NEUTROPHILS # (AUTO) 3.9 K/uL (1.8-7.7); PLATELET COUNT (AUTO) 140 K/uL (130-400); RED BLOOD CELL COUNT(AUTO) 3.51 MIL/uL (4.00-5.50); RED CELL DISTRIBUTION WIDTH 14.2 % (11.0-15.5); WHITE BLOOD COUNT (AUTO) 5.9 K/uL (4.8-10.8)
[2023-06-13 06:44] LABS: ALBUMIN 2.5 g/dL (3.5-5.0); BILIRUBIN,TOTAL 0.4 mg/dL (0.2-1.0); POTASSIUM 3.7 mmol/L (3.5-5.1); TOTAL PROTEIN, SERUM 5.7 g/dL (6.0-8.3)
[2023-06-13] MEDS ORDERED: HYDR50TA36 PO (11:50)
[2023-06-13] MEDS: LATANOPROST 2.5 ML DROPS OU SCH (19:52)
[2023-06-14] VITALS (8 sets, daily range): BP systolic 139–158; BP diastolic 52–91; PULSE 50–94; RESP 16–20; O2SAT 97
[2023-06-14 06:02] LABS: BASOPHILS # (AUTO) 0.04 K/uL (0.00-0.20); BASOPHILS % (AUTO) 0.7 % (0.0-5.0); EOSINOPHILS # (AUTO) 0.16 K/uL (0.00-0.70); EOSINOPHILS % (AUTO) 2.7 % (0.0-8.0); HEMATOCRIT 30.2 % (36-48); IMMATURE GRANULOCYTE ABSOLUTE 0.02 K/uL (0-1); LYMPHOCYTES # (AUTO) 1.5 K/uL (1.0-4.8); LYMPHOCYTES % (AUTO) 24.4 % (21.0-51.0); MEAN CORPUSCULAR HEMOGLOBIN 26.8 pg (27.0-33.0); MEAN CORPUSCULAR HGB CONC 31.1 g/dL (32.0-36.0); MONOCYTES # (AUTO) 0.5 K/uL (0.1-1.0); MONOCYTES % (AUTO) 7.5 % (3.0-13.0); NEUTROPHILS # (AUTO) 3.9 K/uL (1.8-7.7); NEUTROPHILS % (AUTO) 64.4 % (40.0-77.0); PLATELET COUNT (AUTO) 149 K/uL (130-400); RED BLOOD CELL COUNT(AUTO) 3.51 MIL/uL (4.00-5.50); RED CELL DISTRIBUTION WIDTH 14.1 % (11.0-15.5)
[2023-06-14 06:34] LABS: ALBUMIN 2.5 g/dL (3.5-5.0); BILIRUBIN,TOTAL 0.4 mg/dL (0.2-1.0); TOTAL PROTEIN, SERUM 5.8 g/dL (6.0-8.3)
[2023-06-15] VITALS: BP 133/57; PULSE 51; RESP 16
[2023-06-15 04:00] VITALS: BP 158/76; PULSE 57; RESP 16
[2023-06-15 08:03] VITALS: BP 152/61; PULSE 64; RESP 18
[2023-06-15 08:10] VITALS: O2SAT 95
[2023-06-15 09:04] LABS: HEMATOCRIT 34.8 % (36-48); MEAN CORPUSCULAR HGB CONC 31.9 g/dL (32.0-36.0); MEAN CORPUSCULAR VOLUME 84.7 fL (79-99); RED BLOOD CELL COUNT(AUTO) 4.11 MIL/uL (4.00-5.50); WHITE BLOOD COUNT (AUTO) 6.7 K/uL (4.8-10.8)
[2023-06-15] MEDS ORDERED: METO-391 PO (11:48)
[2023-06-15] MEDS ORDERED: AMLO-257 PO (11:48)
[2023-06-15] MEDS ORDERED: LOSA100T59 PO (11:48)
[2023-06-15 11:56] VITALS: BP 156/72; PULSE 60; RESP 18
== END 2023-06-15 17:20 | disposition home or self-care (01) | DRG 304 ==
LOC: EDH 19:37 → EDHIP 06-10 17:37 → 3DH 06-10 20:15
PROVIDERS: ADMIT Hospitalist; ATTEND Hospitalist
DX: I16.0 Hypertensive urgency (principal); E43 Unspecified severe protein-calorie malnutrition; F03.93 Unspecified dementia, unspecified severity, with mood disturbance; M84.48XA Pathological fracture, other site, initial encounter for fracture; Z59.00 Homelessness unspecified; E03.9 Hypothyroidism, unspecified; F31.9 Bipolar disorder, unspecified; I10 Essential (primary) hypertension; G89.29 Other chronic pain; E78.00 Pure hypercholesterolemia, unspecified; E87.6 Hypokalemia; M17.11 Unilateral primary osteoarthritis, right knee; E11.40 Type 2 diabetes mellitus with diabetic neuropathy, unspecified; Z60.8 Other problems related to social environment; Z79.899 Other long term (current) drug therapy; Z87.19 Personal history of other diseases of the digestive system; Z90.49 Acquired absence of other specified parts of digestive tract; Z91.148 Patient's other noncompliance with medication regimen for other reason; Z91.85 Personal history of military service; Z90.710 Acquired absence of both cervix and uterus; Z68.28 Body mass index [BMI] 28.0-28.9, adult
CPT/HCPCS: 36415; 70450; 71045; 71100; 73562; 80048; 80053; 80305; 81001; 82550; 82948; 83036; 83735; 83880; 84145; 84443; 85025; 85027; 85610; 85651; 85730; 86140; 93005; 93306; 93356; G0378; G0481; J2270; J3411; J3475; J3490; J7030